=== PATIENT | male | born 1960 | race Caucasian/White ===

== ENCOUNTER 2018-01-13 13:07 | Emergency (ER) | payer BC ==
--- NOTE | 2018-01-13 15:33 | EDM.PDOC ---
ED HPI GENERAL MEDICAL PROBLEM - General Chief Complaint: General Stated Complaint: POSS A-FIB/CHEST PAIN/TREMORS Time Seen by Provider: 01/13/18 14:56 Source of Information: Reports: Patient History Limitations: Reports: No Limitations - History of Present Illness INITIAL COMMENTS - FREE TEXT/NARRATIVE: 58 y/o M with hx of paroxysmal a-fib presents with vague weakness. Was started on prozac 9 days ago by his final installer inspector, according to the patient because his final installer inspector felt like his anxiety might be provoking atrial fibrillation.. The patient stopped 2 days ago because he is feeling generally poorly and was concerned that the medication might be making him feel bad. States that he just feels weak all over. Feels tired. Feels like he is not getting any rest. No change in his symptoms over the past 2 days since stopping the Prozac. He was expecting to feel better once the medication was stopped. No fever. He has a mild headache, 1 out of 10 severity. No sore throat or nasal congestion. No cough or shortness of breath. No chest pain or palpitations. No abdominal pain or vomiting or diarrhea. No dysuria. No skin complaint. He really has no specific complaint other than just feeling rather poorly and fatigued. [place] out [place], has a [facility] primary care physician. - Related Data Allergies Allergy/AdvReac Type Severity Reaction Status Date / Time No Known Allergies Allergy Verified 01/13/18 13:28 ED ROS GENERAL - Review of Systems Review Of Systems: See Below Constitutional: Reports: Malaise, Weakness, Fatigue. Denies: Fever HEENT: Reports: No Symptoms Respiratory: Denies: Shortness of Breath, Cough Cardiovascular: Denies: Chest Pain Endocrine: Reports: Fatigue GI/Abdominal: Denies: Abdominal Pain, Diarrhea, Vomiting : Denies: Dysuria Musculoskeletal: Reports: No Symptoms Skin: Reports: No Symptoms Neurological: Reports: Dizziness, Headache ED EXAM, GENERAL - Physical Exam Exam: See Below Exam Limited By: No Limitations General Appearance: Alert, WD/WN, No Apparent Distress Eye Exam: Bilateral Eye: Normal Inspection, PERRL Ears: Normal External Exam Nose: Normal Inspection Throat/Mouth: Normal Inspection, Normal Oropharynx, Normal Voice, No Airway Compromise Head: Atraumatic, Normocephalic Neck: Normal Inspection, Supple, Non-Tender, Full Range of Motion Respiratory/Chest: No Respiratory Distress, Lungs Clear, Normal Breath Sounds, Chest Non-Tender Cardiovascular: Normal Peripheral Pulses, Regular Rate, Rhythm, No Edema, No Murmur GI/Abdominal: Soft, Non-Tender, No Distention. No: Rebound Back Exam: Normal Inspection Extremities: Normal Inspection Neurological: Alert, Oriented, Normal Cognition, No Motor/Sensory Deficits Psychiatric: Normal Affect, Normal Mood Skin Exam: Warm, Dry, Intact, Normal Color, No Rash Course - Vital Signs Last Recorded V/S: Last Vital Signs Temp 37.1 C 01/13/18 16:26 Pulse 50 L 01/13/18 16:26 Resp 20 01/13/18 16:26 BP 119/63 01/13/18 16:26 Pulse Ox 95 01/13/18 16:26 - Orders/Labs/Meds Orders: Active Orders 24 hr Category Date Time Status UA W/MICROSCOPIC [URIN] Stat Lab 01/13/18 16:11 Ordered Labs: Laboratory Tests 01/13/18 01/13/18 01/13/18 Range/Units 14:05 14:05 16:11 WBC 7.82 (4.23-9.07) K/mm3 RBC 4.80 (4.63-6.08) M/mm3 Hgb 14.8 (13.7-17.5) gm/L Hct 44.6 (40.1-51.0) % MCV 92.9 H (79.0-92.2) fl MCH 30.8 (25.7-32.2) pg MCHC 33.2 (32.2-35.5) g/dl RDW Std Deviation 44.0 H (35.1-43.9) fL Plt Count 207 (163-337) K/mm3 MPV 10.4 (9.4-12.3) fl Neut % (Auto) 73.2 H (34.0-67.9) % Lymph % (Auto) 14.5 L (21.8-53.1) % Coleman % (Auto) 10.6 (5.3-12.2) % Eos % (Auto) 1.0 (0.8-7.0) Baso % (Auto) 0.4 (0.1-1.2) % Neut # (Auto) 5.73 H (1.78-5.38) K/mm3 Lymph # (Auto) 1.13 L (1.32-3.57) K/mm3 Coleman # (Auto) 0.83 H (0.30-0.82) K/mm3 Eos # (Auto) 0.08 (0.04-0.54) K/mm3 Baso # (Auto) 0.03 (0.01-0.08) K/mm3 Sodium 142 (136-145) mEq/L Potassium 4.5 (3.5-5.1) mEq/L Chloride 108 H (98-107) mEq/L Carbon Dioxide 26 (21-32) mEq/L Anion Gap 12.5 (5-15) BUN 17 (7-18) mg/dL Creatinine 1.5 H (0.7-1.3) mg/dL Est Cr Clr Drug Dosing 58.20 mL/min Estimated GFR (MDRD) 48 (>60) mL/min BUN/Creatinine Ratio 11.3 L (14-18) Glucose 93 (74-106) mg/dL Calcium 8.8 (8.5-10.1) mg/dL Magnesium 1.9 (1.8-2.4) mg/dl Total Bilirubin 0.5 (0.2-1.0) mg/dL AST 21 (15-37) U/L ALT 27 (16-63) U/L Alkaline Phosphatase 56 (46-116) U/L Troponin I < 0.017 (0.00-0.056) ng/mL Total Protein 7.0 (6.4-8.2) g/dl Albumin 3.8 (3.4-5.0) g/dl Globulin 3.2 gm/dL Albumin/Globulin Ratio 1.2 (1-2) TSH 3rd Generation 1.200 (0.358-3.74) uIU/mL Urine Color Yellow (Yellow) Urine Appearance Clear (Clear) Urine pH 7.0 (5.0-8.0) Ur Specific [place] 1.025 (1.005-1.030) Urine Protein Negative (Negative) Urine Glucose (UA) Negative (Negative) Urine Ketones Negative (Negative) Urine Occult Blood Negative (Negative) Urine Nitrite Negative (Negative) Urine Bilirubin Negative (Negative) Urine Urobilinogen 1.0 (0.2-1.0) Ur Leukocyte Esterase Negative (Negative) Urine RBC 0-5 (0-5) /hpf Urine WBC 0-5 (0-5) /hpf Ur Epithelial Cells 0-5 (0-5) /hpf Urine Bacteria Occasional (FEW) /hpf Urine Mucus Not seen (FEW) /hpf Meds: Medications Discontinued Medications Generic Name Dose Route Start Last Admin Trade Name Randell PRN Reason Stop Dose Admin Acetaminophen 650 mg 01/13/18 15:44 01/13/18 15:57 Tylenol PO 01/13/18 15:45 650 mg NOW ONE Administration - Re-Assessments/Exams Free Text/Narrative Re-Assessment/Exam: 01/13/18 18:37 The patient is well-appearing. He has normal vital signs. He is not in atrial fibrillation today. He has very nonspecific complaints of fatigue and malaise. His labs are all normal, including thyroid studies, electrolytes, LFTs, and blood counts. His urine is also negative. His creatinine is minimally elevated at 1.5, baseline unknown. Discussed this result with the patient and encouraged him to follow up with his primary doctor. It is possible that he's having more somatic signs of anxiety and depression. However he is resistant to continuing the Prozac. He is planning to travel home to [place] tomorrow and can follow up with his primary care provider at that time. Departure - Departure Time of Disposition: 16:49 Disposition: Home, Self-Care 01 Clinical Impression: Fatigue Qualifiers: Fatigue type: other Qualified Code(s): R53.83 - Other fatigue - Discharge Information Instructions: Weakness, [id number] Referrals: PCP,Not In Area [Primary Care Provider] - Forms: ED Department Discharge Additional Instructions: 1. Follow up with your primary care provider as soon as possible for further care 2. Your blood work today, including blood counts, electrolytes, liver function, urinalysis, and thyroid tests were all normal. Your kidney function test was mildly abnormal (creatinine 1.5) discuss with your primary doctor who can arrange for followup as needed. - My Orders Last 24 Hours: My Active Orders 01/13/18 16:11 UA W/MICROSCOPIC [URIN] Stat - Assessment/Plan Last 24 Hours: My Active Orders 01/13/18 16:11 UA W/MICROSCOPIC [URIN] Stat
[2018-01-13] MEDS ORDERED: Acetaminophen 325 MG Tab PO ONE (15:44)
== END 2018-01-13 17:10 | disposition home or self-care (01) ==
LOC: JD.ED 13:07
DX: R53.83 Other fatigue (principal); F41.9 Anxiety disorder, unspecified
CPT/HCPCS: 36415; 80053; 81001; 83735; 84443; 84484; 85025; 99283; A9270